=== PATIENT | male | born 1960 | race Caucasian/White ===

== ENCOUNTER 2022-04-29 06:41 | Day surgery (SDC) | payer OTHER ==
[2022-04-27 09:33] VITALS: BMI 30.3
[2022-04-29 07:42] VITALS: BP 130/85; TEMP 97.6
[2022-04-29] MEDS ORDERED: Iopamidol-M 200 41% 20 ML VIAL ONE (14:14)
== END 2022-04-29 09:00 | disposition home or self-care (01) ==
LOC: RAD 06:41 → EDSTATUS 08:00 → RAD 09:00
PROVIDERS: ATTEND Neurological Surgery
PROC: B01B1ZZ Fluoroscopy of Spinal Cord using Low Osmolar Contrast (ICD-10-PCS; principal; 2022-04-29)
DX: M47.26 Other spondylosis with radiculopathy, lumbar region (principal); M51.16 Intervertebral disc disorders with radiculopathy, lumbar region; M43.16 Spondylolisthesis, lumbar region; M48.061 Spinal stenosis, lumbar region without neurogenic claudication; M47.815 Spondylosis without myelopathy or radiculopathy, thoracolumbar region; M48.07 Spinal stenosis, lumbosacral region; I70.0 Atherosclerosis of aorta; Z79.82 Long term (current) use of aspirin; Z79.84 Long term (current) use of oral hypoglycemic drugs; Z79.899 Other long term (current) drug therapy; Z88.5 Allergy status to narcotic agent; Z98.1 Arthrodesis status
CPT/HCPCS: 62304; 72132; Q9966

== ENCOUNTER 2022-05-05 11:19 | Outpatient (CLI) | payer OTHER | END 2022-05-05 11:20 | disposition home or self-care (01) | LOC: TBSIIMAG 11:19 | PROVIDERS: ATTEND Neurological Surgery | DX: M47.26 Other spondylosis with radiculopathy, lumbar region (principal); Z98.890 Other specified postprocedural states | CPT/HCPCS: 72120 ==

== ENCOUNTER 2022-06-30 07:23 | Day surgery (SDC) | payer OTHER ==
[2022-06-29 09:47] VITALS: BMI 32.3
[2022-06-30 08:27] LABS: #Basophils 0.1 thou/uL (0.0-0.2); #Eosinphils 0.2 thou/uL (0.0-0.7); #Lymphocytes 1.8 thou/uL (1.20-3.40); #Monocytes 0.4 thou/uL (0.11-0.59); #Neutrophils 4.6 thou/uL (1.40-6.50); %Basophils 1.1 % (0.0-1.0); %Eosinophils 3.5 % (0.0-10.0); %Lymphocytes 25.4 % (21.0-51.0); %Monocytes 5.1 % (0.0-10.0); Hemoglobin 14.7 g/dL (14.0-18.0); Mean Corpuscular HGB CONC 34.2 g/dL (32.0-36.0); Mean Corpuscular Volume 90.5 fl (78.0-98.0); Mean Platelet Volume 8.1 fL (7.4-10.4); Platelet Count 206 10x3/uL (130-400); RBC Distribution Width 12.1 % (11.5-14.5); Red Blood Cell (RBC) Count 4.74 mill/uL (4.70-6.10); White Blood Cell (WBC) Count 7.1 10x3/uL (4.8-10.8)
[2022-06-30] MEDS ORDERED: Midazolam HCl 2 mg/2 ml Vial ONE (08:57)
[2022-06-30 09:00] LABS: Anion Gap 16 mmol/L (10-20); BUN (Urea Nitrogen) 18 mg/dL (8.4-25.7); Calc. Creatinine Clearance 74 mL/min (70-130); Calcium 9.6 mg/dL (7.8-10.44); Carbon Dioxide 20 mmol/L (23-31); Chloride 107 mmol/L (98-107); Estimated GFR 49; Glucose 113 mg/dL (80-115); Potassium 4.6 mmol/L (3.5-5.1); Sodium 138 mmol/L (136-145)
[2022-06-30] MEDS ORDERED: Bupivacaine HCl 0.5%/Epinephrine 1:200,000/PF 30 ml Vial ONE (09:49)
[2022-06-30] MEDS ORDERED: Fentanyl 250 MCG/5 ML VIAL ONE (10:05)
[2022-06-30] MEDS ORDERED: HYDROmorphone 2 MG/ML VIAL ONE (10:05)
[2022-06-30] MEDS ORDERED: SUGAMMADEX SODIUM 200 MG/2 ML VIAL ONE (10:06)
[2022-06-30] MEDS ORDERED: CEFAZOLIN 2 GM VIAL ONE ×2 (10:17→14:34)
[2022-06-30] MEDS ORDERED: Sodium Chloride 0.9% 100 ML ONE ×2 (10:17→14:34)
[2022-06-30] MEDS ORDERED: Glycopyrrolate 0.2 MG/ML 5 ML SYRINGE ONE (11:15)
[2022-06-30] MEDS ORDERED: PROPOFOL 200 MG/20 ML VIAL ONE (11:15)
[2022-06-30] MEDS ORDERED: Ketorolac Tromethamine 30 MG/ML VIAL ONE (11:15)
[2022-06-30] MEDS ORDERED: NEOSTIGMINE 3 MG/3 ML SYR 3 MG/3 ML SYRINGE ONE (11:15)
[2022-06-30] MEDS ORDERED: Ondansetron PF 4 MG/2 ML Vial ONE (11:15)
[2022-06-30] MEDS ORDERED: Lidocaine 1% PF 5 ML VIAL ONE (11:15)
[2022-06-30] MEDS ORDERED: Dexamethasone 20 MG/5 ML VIAL ONE (11:15)
[2022-06-30] MEDS ORDERED: Rocuronium Bromide 10 MG/ML (10ML VIAL) ONE (11:15)
[2022-06-30] MEDS ORDERED: Tamsulosin HCl 0.4 MG CAP ONE (13:13)
== END 2022-06-30 15:05 | disposition home or self-care (01) ==
LOC: SDC 07:23
PROVIDERS: ATTEND Neurological Surgery
PROC: 01NB0ZZ Release Lumbar Nerve, Open Approach (ICD-10-PCS; principal; 2022-06-30)
DX: M48.062 Spinal stenosis, lumbar region with neurogenic claudication (principal); M54.16 Radiculopathy, lumbar region; G89.4 Chronic pain syndrome; M19.90 Unspecified osteoarthritis, unspecified site; I10 Essential (primary) hypertension; Z87.891 Personal history of nicotine dependence; Z79.82 Long term (current) use of aspirin; Z79.84 Long term (current) use of oral hypoglycemic drugs; Z79.899 Other long term (current) drug therapy; Z88.5 Allergy status to narcotic agent; Z98.1 Arthrodesis status
CPT/HCPCS: 80048; 85025; J1100; J1170; J1885; J2250; J2405; J2704; J3010; J3490

== ENCOUNTER 2024-06-14 09:40 | Outpatient (CLI) | payer MEDICARE | END 2024-06-14 09:41 | disposition home or self-care (01) | LOC: CT 09:40 | PROVIDERS: ATTEND Orthopaedic Surgery | DX: M17.12 Unilateral primary osteoarthritis, left knee (principal); M25.462 Effusion, left knee; N32.89 Other specified disorders of bladder ==

== ENCOUNTER 2024-06-14 10:35 | Outpatient (CLI) | payer MEDICARE ==
[2024-06-14 13:01] LABS: #Basophils 0.06 10x3/uL (0.0-0.2); %Basophils 0.9 % (0.0-1.0); %Eosinophils 4.7 % (0.0-10.0); %Monocytes 5.9 % (0.0-10.0); %Neutrophils 63.3 % (42.0-75.0); Hemoglobin 13.3 g/dL (14.0-18.0); Mean Corpuscular HGB CONC 33.3 g/dL (32.0-36.0); Mean Corpuscular Volume 90.3 fL (78.0-98.0); Mean Platelet Volume 10.7 fL (7.4-10.4); Platelet Count 186 10x3/uL (130-400); RBC Distribution Width 12.9 % (11.5-14.5); Red Blood Cell (RBC) Count 4.43 mill/uL (4.70-6.10)
[2024-06-14 13:09] LABS: Bilirubin Negative (Negative); Blood, Urine Negative (Negative); Clarity Clear (Clear); Glucose, Urine (Dipstick) Normal (Negative); Ketone, Urine Negative (Negative); Leukocyte Negative Leu/uL (Negative); Nitrite Negative (Negative); Protein, Urine (Dipstick) Negative (Neg-Trace); Urobilinogen Normal mg/dL (Less than 2); pH, Urine 5.5 (5.0-9.0)
[2024-06-14 13:14] LABS: Prothrombin Time 12.8 sec (12.0-14.7)
[2024-06-14 13:15] LABS: Anion Gap 12 mmol/L (10-20); BUN (Urea Nitrogen) 19 mg/dL (8.4-25.7); Calc. Creatinine Clearance 0 mL/min (70-130); Calcium 9.2 mg/dL (7.8-10.44); Carbon Dioxide 20 mmol/L (23-31); Chloride 110 mmol/L (98-107); Estimated GFR 53; Glucose 97 mg/dL (80-115); Potassium 3.6 mmol/L (3.5-5.1); Sodium 138 mmol/L (136-145)
== END 2024-06-14 10:36 | disposition home or self-care (01) ==
LOC: LABBT 10:35
PROVIDERS: ATTEND Orthopaedic Surgery
DX: Z01.818 Encounter for other preprocedural examination (principal); M17.0 Bilateral primary osteoarthritis of knee
CPT/HCPCS: 71046; 80048; 81003; 85025; 85610; 87081

== ENCOUNTER 2024-06-25 06:29 | Observation (INO) | payer MEDICARE ==
[2024-06-25] MEDS ORDERED: Sodium Chloride 0.9% 100 ML ONE (08:44)
[2024-06-25] MEDS ORDERED: Tranexamic Acid 1,000 MG/10 ML VIAL ONE (08:44)
[2024-06-25] MEDS ORDERED: Vancomycin (BATCH) 300 ML ONE (08:44)
[2024-06-25] MEDS ORDERED: fentaNYL PF 100 MCG/2 ML SYRINGE ONE (09:12)
[2024-06-25] MEDS ORDERED: PROPOFOL 20 ML ONE (09:12)
[2024-06-25] MEDS ORDERED: HYDROmorphone 2 MG/ML VIAL ONE (09:12)
[2024-06-25] MEDS ORDERED: Bupivacaine 0.25% HCL 30 ML VIAL ONE (09:24)
[2024-06-25] MEDS ORDERED: Midazolam HCl 2 mg/2 ml Vial ONE (09:36)
[2024-06-25] MEDS ORDERED: fentaNYL 50 mcg/mL 1 mL Vial ONE ×4 (09:36→14:57)
[2024-06-25] MEDS ORDERED: Famotidine/PF 20 mg/2ml Vial ONE (09:37)
[2024-06-25] MEDS ORDERED: Ropivacaine 0.5% HCl/PF (150 MG/30 ML VIAL) ONE (09:37)
[2024-06-25] MEDS ORDERED: CEFAZOLIN 2 GM VIAL ONE (09:53)
[2024-06-25] MEDS ORDERED: Lidocaine 1% (PF) 30 ML VIAL ONE (10:00)
[2024-06-25] MEDS ORDERED: methylPREDNISolone Acetate 40 mg/ml Vial ONE (10:00)
[2024-06-25] MEDS ORDERED: Ondansetron PF 4 MG/2 ML Vial IVP PRN ×2 (10:30→12:09)
[2024-06-25] MEDS ORDERED: Ropivacaine 0.2% 550 ML 550 ML NERVE BLCK SCH (10:30)
[2024-06-25] MEDS ORDERED: fentaNYL 50 mcg/mL 1 mL Vial SLOW IVP PRN (10:30)
[2024-06-25] MEDS ORDERED: Zolpidem Tartrate 5 MG TAB PO PRN ×2 (10:30→12:09)
[2024-06-25] MEDS ORDERED: traMADol HCl 50 MG TAB PO PRN ×2 (10:30)
[2024-06-25] MEDS ORDERED: Promethazine HCl 25 MG/ML VIAL IM PRN ×2 (10:30→12:09)
[2024-06-25] MEDS ORDERED: HYDROcodone/Acetaminophen 10/325 mg Tablet PO PRN (10:30)
[2024-06-25] MEDS ORDERED: PHENYLEPHRINE-NS 100 MCG/ML 10 ML SYRINGE ONE (10:40)
[2024-06-25] MEDS ORDERED: Rocuronium Bromide 10 MG/ML (10ML VIAL) ONE (10:43)
[2024-06-25] MEDS ORDERED: diphenhydrAMINE 50 MG/ML VIAL ONE (10:43)
[2024-06-25] MEDS ORDERED: SUGAMMADEX SODIUM 200 MG/2 ML VIAL ONE (12:01)
[2024-06-25] MEDS ORDERED: Ondansetron HCl/PF 4 MG/2 ML Vial IVP PRN (12:02)
[2024-06-25] MEDS ORDERED: diphenhydrAMINE 25 MG CAP PO PRN (12:09)
[2024-06-25] MEDS ORDERED: Acetaminophen 325 MG TAB PO PRN (12:09)
[2024-06-25] MEDS ORDERED: Loratadine 10 MG TAB PO PRN (12:10)
[2024-06-25] MEDS ORDERED: Tranexamic Acid 1,000 MG in Sodium Chloride 0.9% 100 ML IVPB SCH (12:15)
[2024-06-25] MEDS ORDERED: HYDROmorphone 0.5 MG/0.5 ML SYRINGE ONE (13:44)
[2024-06-25] MEDS: CEFAZOLIN 2 GM in Sodium Chloride 0.9% 100 ML IVPB SCH (17:35)
[2024-06-25] MEDS: Ketorolac Tromethamine 30 MG (1 mL) VIAL IVP SCH (17:35)
[2024-06-25] MEDS: Sodium Chloride 0.9% 1,000 ML IV SCH (17:44)
[2024-06-25 19:28] VITALS: BMI 31.1
[2024-06-25] MEDS: HYDROcodone/Acetaminophen 10/325 mg Tablet PO PRN (21:11)
[2024-06-25] MEDS: Vancomycin 1.5 GRAM/300 ML BAG 1.5 GM in Premix 1 BAG IVPB SCH (21:13)
[2024-06-25] MEDS: Pantoprazole DR 40 MG TAB PO SCH (21:20)
[2024-06-25] MEDS: Senokot S 8.6-50 MG TAB PO SCH (21:20)
[2024-06-25] MEDS: Ferrous Gluconate 324 MG TAB PO SCH (21:20)
[2024-06-25] MEDS: Atorvastatin Calcium 40 MG TAB PO SCH (21:20)
[2024-06-25] MEDS: Aspirin 81 mg Enteric Coated Tablet PO SCH (21:20)
[2024-06-25] MEDS: Sertraline 100 MG TAB PO SCH (21:21)
[2024-06-25] MEDS: Topiramate 100 MG TAB PO SCH (21:21)
[2024-06-26 05:52] LABS: Hematocrit 31.5 % (42.0-52.0); Hemoglobin 10.6 g/dL (14.0-18.0); Mean Corpuscular HGB CONC 33.7 g/dL (32.0-36.0); Mean Corpuscular Hemoglobin 30.3 pg (27.0-31.0); Mean Platelet Volume 10.3 fL (7.4-10.4); Platelet Count 169 10x3/uL (130-400); RBC Distribution Width 12.8 % (11.5-14.5)
[2024-06-26] MEDS ORDERED: Aspirin Chewable 81 MG TAB PO SCH (09:00)
[2024-06-26] MEDS: Tamsulosin HCl 0.4 MG CAP PO SCH (09:23)
[2024-06-26] MEDS: Multivitamin W/ Minerals 1 TAB PO SCH (09:23)
[2024-06-26] MEDS: Lisinopril 20 MG TAB PO SCH (09:23)
[2024-06-26 11:05] VITALS: BMI 31.2
[2024-06-26 12:31] VITALS: BP 118/72; TEMP 97.4
== END 2024-06-26 12:30 | disposition home or self-care (01) ==
LOC: SDC 06:29 → SURG B 15:21 → SDC 17:33 → SURG B 17:33
PROVIDERS: ADMIT Orthopaedic Surgery; ATTEND Orthopaedic Surgery
PROC: 0SRD0JZ Replacement of Left Knee Joint with Synthetic Substitute, Open Approach (ICD-10-PCS; principal; 2024-06-25)
PROC: 0S9C3ZZ Drainage of Right Knee Joint, Percutaneous Approach (ICD-10-PCS; 2024-06-25)
DX: M17.0 Bilateral primary osteoarthritis of knee (principal); M54.16 Radiculopathy, lumbar region; I25.10 Atherosclerotic heart disease of native coronary artery without angina pectoris; I71.20 Thoracic aortic aneurysm, without rupture, unspecified; I12.9 Hypertensive chronic kidney disease with stage 1 through stage 4 chronic kidney disease, or unspecified chronic kidney disease; N18.9 Chronic kidney disease, unspecified; E11.22 Type 2 diabetes mellitus with diabetic chronic kidney disease; E78.5 Hyperlipidemia, unspecified; F32.A Depression, unspecified; K21.9 Gastro-esophageal reflux disease without esophagitis; N40.0 Benign prostatic hyperplasia without lower urinary tract symptoms; G47.30 Sleep apnea, unspecified; Z95.5 Presence of coronary angioplasty implant and graft; Z87.891 Personal history of nicotine dependence; Z88.5 Allergy status to narcotic agent; Z88.8 Allergy status to other drugs, medicaments and biological substances; Z79.82 Long term (current) use of aspirin; Z79.899 Other long term (current) drug therapy
CPT/HCPCS: 0055T; 20610; 27447; 36415; 36416; 85027; A4306; C1713; C1776; C1889; J0665; J1010; J1171; J1200; J1885; J2250; J2704; J2795; J3010; J3370; J3490; J7030

== ENCOUNTER 2025-04-23 11:28 | Outpatient (CLI) | payer MEDICARE ==
[2025-04-23 13:24] LABS: #Basophils 0.04 10x3/uL (0.0-0.2); #Eosinophils 0.18 10x3/uL (0.0-0.7); #Monocytes 0.39 10x3/uL (0.11-0.59); #Neutrophils 4.02 10x3/uL (1.40-6.50); %Basophils 0.7 % (0.0-1.0); %Eosinophils 3.0 % (0.0-10.0); %Lymphocytes 23.3 % (21.0-51.0); %Monocytes 6.4 % (0.0-10.0); %Neutrophils 66.4 % (42.0-75.0); Hematocrit 37.1 % (42.0-52.0); Hemoglobin 12.3 g/dL (14.0-18.0); Mean Corpuscular Hemoglobin 29.4 pg (27.0-31.0); Mean Corpuscular Volume 88.8 fL (78.0-98.0); Platelet Count 210 10x3/uL (130-400); Red Blood Cell (RBC) Count 4.18 mill/uL (4.70-6.10); White Blood Cell (WBC) Count 6.05 10x3/uL (4.8-10.8)
[2025-04-23 13:39] LABS: INR-International Normal Ratio 1.0; Prothrombin Time 13.2 sec (12.0-14.7)
[2025-04-23 13:48] LABS: Anion Gap 11 mmol/L (10-20); BUN (Urea Nitrogen) 20 mg/dL (8.4-25.7); Calc. Creatinine Clearance 0 mL/min (70-130); Calcium 8.9 mg/dL (7.8-10.44); Carbon Dioxide 23 mmol/L (23-31); Chloride 112 mmol/L (98-107); Glucose 89 mg/dL (80-115); Potassium 3.8 mmol/L (3.5-5.1); Sodium 142 mmol/L (136-145)
[2025-04-23 13:59] LABS: Bacteria/HPF None Seen HPF (None Seen); Glucose, Urine (Dipstick) Normal (Negative); Leukocyte Negative Leu/uL (Negative); Protein, Urine (Dipstick) Negative (Neg-Trace); RBC/HPF 0-3 HPF (0-3); Specific Gravity, Urine 1.011 (1.002-1.036); WBC/HPF 0-3 HPF (0-3)
== END 2025-04-23 11:29 | disposition home or self-care (01) ==
LOC: LABBT 11:28
PROVIDERS: ATTEND Orthopaedic Surgery
DX: Z01.818 Encounter for other preprocedural examination (principal); M17.11 Unilateral primary osteoarthritis, right knee
CPT/HCPCS: 71046; 80048; 81001; 85025; 85610; 87081

== ENCOUNTER 2025-04-23 12:13 | Outpatient (CLI) | payer MEDICARE | END 2025-04-23 12:14 | disposition home or self-care (01) | LOC: CT 12:13 | PROVIDERS: ATTEND Orthopaedic Surgery | DX: Z01.818 Encounter for other preprocedural examination (principal); M17.11 Unilateral primary osteoarthritis, right knee | CPT/HCPCS: 71046; 80048; 81001; 85025; 85610; 87081; 93005; 93010 ==